=== PATIENT | female | born 2005 | race Caucasian/White ===

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

== ENCOUNTER 2025-01-31 18:33 | Emergency (ER) | payer OTHER ==
[~2025-01-31] VITALS: Ht 167.6 cm; Wt 73.5 kg
[2025-01-31 18:55] VITALS: BP 130/82; TEMP 98.2
[2025-01-31 19:30] VITALS: O2SAT 99
[2025-01-31] MEDS ORDERED: IBUP-1953 PO (20:09)
[2025-01-31] MEDS ORDERED: LIDO30AD10 TP (20:09)
== END 2025-01-31 20:18 | disposition home or self-care (01) ==
LOC: ER 18:40
DX: S29.012A Strain of muscle and tendon of back wall of thorax, initial encounter (principal); X58.XXXA Exposure to other specified factors, initial encounter; Y93.11 Activity, swimming; Y92.89 Other specified places as the place of occurrence of the external cause; Y99.8 Other external cause status